=== PATIENT | male | born 1975 | race Caucasian/White ===

== ENCOUNTER 2025-05-06 14:56 | Emergency (ER) | payer MEDICARE ==
[2025-05-06] MEDS ORDERED: Magnesium 2 GM/50 ML BAG (IN WATER) ONE (15:57)
[2025-05-06 16:08] LABS: #Basophils 0.1 thou/uL (0.0-0.2); #Eosinophils 0.1 thou/uL (0.0-0.7); #Lymphocytes 1.8 thou/uL (1.20-3.40); #Monocytes 0.3 thou/uL (0.11-0.59); #Neutrophils 2.3 thou/uL (1.40-6.50); %Basophils 1.4 % (0.0-1.0); %Eosinophils 1.5 % (0.0-10.0); %Lymphocytes 38.9 % (21.0-51.0); %Monocytes 7.2 % (0.0-10.0); %Neutrophils 51.0 % (42.0-75.0); Cocaine Metabolite Screen Negative (Negative); Hematocrit 42.6 % (42.0-52.0); Hemoglobin 14.0 g/dL (14.0-18.0); Mean Corpuscular Hemoglobin 29.0 pg (27.0-31.0); Mean Corpuscular Volume 88.4 fl (78.0-98.0); Platelet Count 279 10x3/uL (130-400); Red Blood Cell (RBC) Count 4.82 mill/uL (4.70-6.10); THC/Cannabinoid Screen PRELIM POSITIVE (Negative); Tricyclic Screen Negative (Negative); White Blood Cell (WBC) Count 4.6 10x3/uL (4.8-10.8)
[2025-05-06 16:16] LABS: ALT (SGPT) 22 U/L (Less than 45); AST (SGOT) 19 U/L (11-34); Albumin 4.1 g/dL (3.1-4.5); Alkaline Phosphatase 57 U/L (40-110); Anion Gap 15 mmol/L (10-20); BUN (Urea Nitrogen) 9 mg/dL (8.9-20.6); Bilirubin, Total 0.3 mg/dL (0.3-1.2); CK (CPK) 77 U/L (30-200); Calc. Creatinine Clearance 0 mL/min (70-130); Calcium 9.1 mg/dL (7.8-10.44); Carbon Dioxide 24 mmol/L (22-29); Chloride 109 mmol/L (98-107); Globulin 2.6 g/dL (2.4-3.5); Glucose 84 mg/dL (70-105); Magnesium 2.0 mg/dL (1.6-2.6); Potassium 3.8 mmol/L (3.5-5.1); Sodium 144 mmol/L (136-145)
[2025-05-06 16:19] LABS: Troponin I Less than 0.010 ng/mL (< 0.028)
[2025-05-06] MEDS ORDERED: Folic Acid 5 MG/ML MDV ONE (16:19)
[2025-05-06] MEDS ORDERED: Multivit, Adult Inj 10 ML VIAL ONE (16:19)
== END 2025-05-06 19:36 | disposition home or self-care (01) ==
LOC: EDBD 14:56 → BURERS 14:56
DX: E86.0 Dehydration (principal); F10.10 Alcohol abuse, uncomplicated; Y90.1 Blood alcohol level of 20-39 mg/100 ml; R27.0 Ataxia, unspecified; F17.210 Nicotine dependence, cigarettes, uncomplicated; M54.2 Cervicalgia; R41.82 Altered mental status, unspecified
CPT/HCPCS: 36415; 70450; 71045; 72125; 80053; 80306; 80307; 82550; 83735; 83880; 84443; 84484; 85025; 93005; 96365; 96366; 96368; 96375; J2060; J3411; J3475